=== PATIENT | female | born 1990 | race Caucasian/White ===

== ENCOUNTER 2016-12-16 14:35 | Emergency (ER) | payer MEDICAID ==
[~2016-12-16] VITALS: Ht 160 cm; Wt 97.0 kg
[~2016-12-16 14:35] MED LIST: DOCU-30 PO; HYDR-3240 PO; IBUP800T PO; NITR100C56 PO; PREN1TAB27 PO
[2016-12-16] MEDS ORDERED: SODIUM CHLORIDE 0.9% 1,000 ML IV ONE (15:07)
[2016-12-16] MEDS ORDERED: ONDANSETRON 2MG/ML, 2ML IVPush ONE (15:30)
[2016-12-16] MEDS ORDERED: SODIUM CHLORIDE FLUSH 10ML SYR IVF ONE (15:30)
[2016-12-16 15:37] LABS: BLOOD UREA NITROGEN 6 mg/dL (7-18)
[2016-12-16] MEDS ORDERED: ONDANSETRON 2MG/ML, 2ML ONE (16:12)
[2016-12-16 17:41] VITALS: BP 110/63
== END 2016-12-16 17:57 | disposition home or self-care (01) ==
LOC: ED 17:51
DX: O23.12 Infections of bladder in pregnancy, second trimester (principal); O23.02 Infections of kidney in pregnancy, second trimester; R31.9 Hematuria, unspecified; M54.5 Low back pain; Z87.440 Personal history of urinary (tract) infections; Z3A.17 17 weeks gestation of pregnancy
CPT/HCPCS: 36415; 76805; 80048; 81001; 82040; 85025; 87086; 96361; 96374; 99285; J2405; J7030

== ENCOUNTER 2017-01-20 21:59 | Inpatient (IN) | payer MEDICAID ==
[~2017-01-20] VITALS: Ht 160 cm; Wt 94.0 kg
[2017-01-20] MEDS ORDERED: HYDROcodone/APAP 5/325 TABLET PO ONE (23:00)
[2017-01-20] MEDS ORDERED: FENTANYL PF 100 MCG/2ML ONE ×2 (23:09→23:53)
[2017-01-20 23:24] LABS: DAU SCREEN DISCLAIMER
[2017-01-20] MEDS ORDERED: FENTANYL PF 100 MCG/2ML IVPush PRN (23:30)
[2017-01-20] MEDS ORDERED: LACTATED RINGERS 1,000 ML IVBOLUS ONE (23:30)
[2017-01-20] MEDS ORDERED: HYDROcodone/APAP 5/325 TABLET ONE (23:53)
[2017-01-21] MEDS: D5%-LACTATED RINGERS 1,000 ML IV SCH ×3 (00:07→16:05)
[2017-01-21] MEDS ORDERED: HYDROcodone/APAP 5/325 TABLET PO ONE (00:30)
[2017-01-21] MEDS ORDERED: ONDANSETRON 2MG/ML, 2ML ONE ×2 (00:38→08:06)
[2017-01-21] MEDS ORDERED: ONDANSETRON 2MG/ML, 2ML IVPush PRN ×2 (01:00→18:30)
[2017-01-21] MEDS ORDERED: DIPHENHYDRAMINE 50 MG/ML, 1ML ONE (01:11)
[2017-01-21] MEDS ORDERED: DIPHENHYDRAMINE 50 MG/ML, 1ML IVPush ONE (01:30)
[2017-01-21] MEDS ORDERED: MORPHINE SULFATE 4 MG/ML, 1ML ONE (02:20)
[2017-01-21] MEDS ORDERED: MORPHINE SULFATE 4 MG/ML, 1ML IVPush PRN (03:00)
[2017-01-21] MEDS ORDERED: HYDROmorphone 1 MG/ML, 1ML ONE ×7 (04:23→16:31)
[2017-01-21] MEDS ORDERED: HYDROmorphone 1 MG/ML, 1ML IV ONE (04:30)
[2017-01-21] MEDS: HYDROmorphone 1 MG/ML, 1ML IV PRN ×6 (06:33→16:33)
[2017-01-21 07:11] LABS: BLOOD UREA NITROGEN 12 mg/dL (7-18)
[2017-01-21 07:15] LABS: ASPARTATE AMINO TRANSFERASE 13 U/L (15-37)
[2017-01-21 07:26] VITALS: BP 134/71
[2017-01-21] MEDS ORDERED: SUCCINYLCHOLINE 20 MG/ML, 10ML ONE (08:06)
[2017-01-21] MEDS ORDERED: PROPOFOL 10 MG/ML, 20ML ONE (08:06)
[2017-01-21] MEDS ORDERED: CEFAZOLIN 1,000 MG ONE (08:06)
[2017-01-21] MEDS ORDERED: ROCURONIUM 10 MG/ML ONE (08:06)
[2017-01-21] MEDS ORDERED: DOCUSATE 100 MG CAPSULE ONE (09:19)
[2017-01-21 10:33] VITALS: BP 120/56
[2017-01-21] MEDS ORDERED: FENTANYL PF 100 MCG/2ML ONE (17:49)
[2017-01-21] MEDS ORDERED: PROMETHAZINE 25 MG/ML, 1ML IV PRN (18:30)
[2017-01-21] MEDS ORDERED: OXYcodone 5 MG/5 ML ORAL.SOL UDC PO PRN (18:30)
[2017-01-21] MEDS ORDERED: FENTANYL PF 100 MCG/2ML IV PRN (18:30)
[2017-01-21] MEDS ORDERED: HYDROmorphone 1 MG/ML, 1ML IV PRN (18:30)
[2017-01-21] MEDS ORDERED: OXYcodone 5 MG/5 ML ORAL.SOL UDC ONE (19:19)
[2017-01-21] MEDS ORDERED: GUAIFENESIN/COD200MG-20MG/10ML LIQUID PO PRN (20:00)
[2017-01-21] MEDS ORDERED: HYDROcodone/APAP 5/325 TABLET ONE (21:32)
[2017-01-21] MEDS: HYDROcodone/APAP 5/325 TABLET PO PRN (21:35)
[2017-01-22] MEDS ORDERED: HYDROcodone/APAP 5/325 TABLET ONE (05:47)
[2017-01-22] MEDS: HYDROcodone/APAP 5/325 TABLET PO PRN (05:49)
[2017-01-22] MEDS ORDERED: HYDR-883 PO (07:44)
== END 2017-01-22 08:07 | disposition home or self-care (01) | DRG 781 ==
LOC: LDOP 21:59 → LDIP 01-21 → OBSVTOIN 01-21 08:17
PROVIDERS: ADMIT Student in an Organized Health Care Education/Training Program; ATTEND Student in an Organized Health Care Education/Training Program
PROC: 0TC68ZZ Extirpation of Matter from Right Ureter, Via Natural or Artificial Opening Endoscopic (ICD-10-PCS; principal; 2017-01-21 13:30)
DX: O26.832 Pregnancy related renal disease, second trimester (principal); N13.2 Hydronephrosis with renal and ureteral calculous obstruction; O34.219 Maternal care for unspecified type scar from previous cesarean delivery; Z3A.21 21 weeks gestation of pregnancy; Z87.440 Personal history of urinary (tract) infections
CPT/HCPCS: 36415; 76705; 76770; 80053; 80307; 81001; 82360; 85025; 87086; 88300; G0378; J0690; J1170; J2405; J2704; J3010; C1769; J0330; J1200; J7120; J7121

== ENCOUNTER 2017-05-26 08:20 | Inpatient (IN) | payer MEDICAID ==
[~2017-05-26] VITALS: Ht 157.5 cm; Wt 92.0 kg
[~2017-05-26 08:20] MED LIST changes: +DOCU-131 PO; -DOCU-30 PO; +HYDR-883 PO; +IBUP-1223 PO; -IBUP800T PO
[2017-05-26] MEDS ORDERED: LACTATED RINGERS 1,000 ML IV SCH (09:58)
[2017-05-26] MEDS ORDERED: OXYTOCIN 30U/ 0.9% NaCL 500ML 500 ML IV SCH (09:58)
[2017-05-26] MEDS ORDERED: LACTATED RINGERS 1,000 ML IVBOLUS ONE (10:00)
[2017-05-26] MEDS ORDERED: METOCLOPRAMIDE 5 MG/ML, 2ML IV ONE (10:00)
[2017-05-26] MEDS ORDERED: SODIUM CITRATE/CITRIC ACID 30 ML UDC PO ONE (10:00)
[2017-05-26] MEDS ORDERED: METOCLOPRAMIDE 5 MG/ML, 2ML ONE (10:10)
[2017-05-26] MEDS ORDERED: NEWBORN KIT ONE (10:10)
[2017-05-26] MEDS ORDERED: SODIUM CITRATE/CITRIC ACID 30 ML UDC ONE (10:10)
[2017-05-26] MEDS ORDERED: OXYTOCIN 30U/ 0.9% NaCL 500ML 500 ML ONE (10:11)
[2017-05-26 10:26] LABS: HEMATOCRIT 39.8 % (34.6-47.8); HEMOGLOBIN 13.3 g/dL (11.7-16.4); WHITE BLOOD COUNT 10.2 x10^3/uL (3.4-10)
[2017-05-26] MEDS ORDERED: PLEASE ENTER HEIGHT AND WEIGHT MC SCH (10:30)
[2017-05-26 10:33] VITALS: BP 124/74
[2017-05-26] MEDS ORDERED: HYDROmorphone 2 MG/ML, 1ML ONE (11:18)
[2017-05-26] MEDS ORDERED: FENTANYL PF 100 MCG/2ML ONE ×2 (11:18→12:08)
[2017-05-26] MEDS ORDERED: CEFAZOLIN 1,000 MG ONE (12:08)
[2017-05-26] MEDS ORDERED: ONDANSETRON 2MG/ML, 2ML ONE (12:08)
[2017-05-26] MEDS: LACTATED RINGERS 1,000 ML IV SCH ×4 (12:09→22:09)
[2017-05-26] MEDS: OXYTOCIN 30U/ 0.9% NaCL 500ML 500 ML IV SCH ×2 (12:09→22:09)
[2017-05-26] MEDS ORDERED: CARBOPROST TROMETHAMINE 250 MCG/ML, 1ML IM PRN (12:30)
[2017-05-26] MEDS ORDERED: METHYLERGONOVINE 0.2 MG/ML IM PRN (12:30)
[2017-05-26] MEDS ORDERED: OXYcodone/APAP 5/325MG TABLET PO PRN (12:30)
[2017-05-26] MEDS ORDERED: SIMETHICONE 80 MG CHEW TAB PO PRN (12:30)
[2017-05-26] MEDS ORDERED: CALCIUM CARBONATE 500 MG TAB.CHEW PO PRN (12:30)
[2017-05-26] MEDS ORDERED: ONDANSETRON 2MG/ML, 2ML IV PRN (12:30)
[2017-05-26] MEDS ORDERED: MISOPROSTOL 200 MCG TABLET PR PRN (12:30)
[2017-05-26] MEDS ORDERED: HYDROmorphone 1 MG/ML, 1ML ONE (15:17)
[2017-05-26] MEDS: HYDROmorphone 1 MG/ML, 1ML IV PRN ×2 (15:27→15:34)
[2017-05-26 16:00] VITALS: BP 129/59
[2017-05-26 16:34] VITALS: BP 119/64
[2017-05-26] MEDS: OXYcodone/APAP 5/325MG TABLET PO PRN ×2 (16:34→20:26)
[2017-05-26 17:00] VITALS: BP 120/73
[2017-05-26] MEDS: KETOROLAC 30 MG/1 ML IV SCH ×2 (17:05→22:59)
[2017-05-26 20:00] VITALS: BP 118/63
[2017-05-26 21:34] LABS: HEMATOCRIT 33.9 % (34.6-47.8); HEMOGLOBIN 11.2 g/dL (11.7-16.4); WHITE BLOOD COUNT 9.6 x10^3/uL (3.4-10)
[2017-05-27 00:10] VITALS: BP 100/53
[2017-05-27] MEDS: OXYcodone/APAP 5/325MG TABLET PO PRN ×5 (03:27→22:01)
[2017-05-27] MEDS: LACTATED RINGERS 1,000 ML IV SCH ×5 (04:09→20:09)
[2017-05-27] MEDS: KETOROLAC 30 MG/1 ML IV SCH ×4 (05:42→23:17)
[2017-05-27 06:20] VITALS: BP 103/54
[2017-05-27 07:45] VITALS: BP 111/67
[2017-05-27] MEDS: OXYTOCIN 30U/ 0.9% NaCL 500ML 500 ML IV SCH ×2 (08:09→18:09)
[2017-05-27] MEDS: PRENATAL VIT/IRON/FA 1 EACH TABLET PO SCH (08:21)
[2017-05-27] MEDS: DOCUSATE 100 MG CAPSULE PO PRN ×2 (08:21→22:01)
[2017-05-27 12:00] VITALS: BP 111/69
[2017-05-27 19:47] VITALS: BP 145/97
[2017-05-27 21:00] VITALS: BP 137/89
[2017-05-28] MEDS: OXYTOCIN 30U/ 0.9% NaCL 500ML 500 ML IV SCH (04:09)
[2017-05-28] MEDS: LACTATED RINGERS 1,000 ML IV SCH ×3 (04:09→12:09)
[2017-05-28] MEDS: KETOROLAC 30 MG/1 ML IV SCH (05:32)
[2017-05-28 07:00] VITALS: BP 127/84
[2017-05-28] MEDS: PRENATAL VIT/IRON/FA 1 EACH TABLET PO SCH (07:11)
[2017-05-28] MEDS: DOCUSATE 100 MG CAPSULE PO PRN (07:11)
[2017-05-28] MEDS ORDERED: IBUPROFEN 600 MG TABLET PO SCH (08:00)
[2017-05-28] MEDS ORDERED: IBUP-1222 PO (08:40)
[2017-05-28] MEDS ORDERED: OXYC-302 PO (08:40)
[2017-05-28] MEDS ORDERED: DOCU-131 PO (08:40)
[2017-05-28] MEDS: OXYcodone/APAP 5/325MG TABLET PO PRN ×2 (09:02→12:50)
[2017-05-28] MEDS ORDERED: IBUPROFEN 600 MG TABLET PO PRN (12:30)
== END 2017-05-28 15:01 | disposition home or self-care (01) | DRG 765 ==
LOC: LDIP 09:53 → 2NW 15:50
PROVIDERS: ADMIT Student in an Organized Health Care Education/Training Program; ATTEND Student in an Organized Health Care Education/Training Program
PROC: 0UB70ZZ Excision of Bilateral Fallopian Tubes, Open Approach (ICD-10-PCS; principal; 2017-05-26)
PROC: 10D00Z1 Extraction of Products of Conception, Low, Open Approach (ICD-10-PCS; 2017-05-26)
PROC: 0DTJ0ZZ Resection of Appendix, Open Approach (ICD-10-PCS; 2017-05-26)
DX: O34.211 Maternal care for low transverse scar from previous cesarean delivery (principal); O26.833 Pregnancy related renal disease, third trimester; N13.2 Hydronephrosis with renal and ureteral calculous obstruction; Z37.0 Single live birth; K56.41 Fecal impaction; Z30.2 Encounter for sterilization; Z3A.39 39 weeks gestation of pregnancy
CPT/HCPCS: 36415; 85025; 86850; 86900; 88300; 88302; 88304; J0690; J1170; J1885; J2405; J3010; J2590; J2765; J7120